=== PATIENT | male | born 1960 | race Caucasian/White ===

== ENCOUNTER 2017-08-28 10:20 | Inpatient (IN) | payer OTHER ==
[~2017-08-28] VITALS: Ht 172.7 cm; Wt 127.0 kg
[2017-08-28] MEDS ORDERED: GABAPENTIN300 MG (10:38)
[2017-08-28] MEDS ORDERED: ZOCOR5 MG (10:38)
[2017-08-28] MEDS ORDERED: COZAAR100 MG (10:38)
[2017-08-28] MEDS ORDERED: CARVEDILOL6.25 MG (10:38)
[2017-08-28] MEDS ORDERED: FUROSEMIDE40 MG (10:38)
[2017-08-28] MEDS ORDERED: RESTORIL7.5 MG (10:39)
[2017-08-28] MEDS ORDERED: METOLAZONE2.5 MG (10:39)
[2017-08-28] MEDS ORDERED: ZYLOPRIM100 MG (10:39)
[2017-08-28] MEDS ORDERED: FERRETTS325 MG (10:39)
[2017-08-28] MEDS ORDERED: PRE-PROTEIN236.5 ML (10:40)
[2017-08-28] MEDS ORDERED: HUMALOG100 UNIT/1 (10:40)
[2017-08-28] MEDS ORDERED: RENAL VITAMIN0.8 MG (10:40)
[2017-08-28] MEDS ORDERED: LANTUS SOL100 UNIT/1 (10:40)
[2017-08-28] MEDS ORDERED: XANAX2 MG (10:41)
[2017-08-28] MEDS ORDERED: OMEPRAZOLE20 MG (10:41)
[2017-08-28] MEDS ORDERED: CYMBALTA60 MG (10:41)
== END 2017-09-22 13:34 | DRG 982 ==
LOC: ER 10:20 → SURH 22:28 → SEC-K 22:28 → SURH 08-29 08:15
PROVIDERS: Specialist
PROC: B44HZZZ Ultrasonography of Bilateral Lower Extremity Arteries (ICD-10-PCS; 2017-08-28)
PROC: 8E0ZXY6 Isolation (ICD-10-PCS; 2017-08-28)
PROC: 4A033R1 Measurement of Arterial Saturation, Peripheral, Percutaneous Approach (ICD-10-PCS; 2017-08-29)
PROC: 3E0F7GC Introduction of Other Therapeutic Substance into Respiratory Tract, Via Natural or Artificial Opening (ICD-10-PCS; 2017-08-29)
PROC: 02HV33Z Insertion of Infusion Device into Superior Vena Cava, Percutaneous Approach (ICD-10-PCS; 2017-08-29)
PROC: BQ3LZZZ Magnetic Resonance Imaging (MRI) of Right Foot (ICD-10-PCS; 2017-08-30)
PROC: BB24ZZZ Computerized Tomography (CT Scan) of Bilateral Lungs (ICD-10-PCS; 2017-08-30)
PROC: 0QBQ0ZZ Excision of Right Toe Phalanx, Open Approach (ICD-10-PCS; 2017-09-08)
PROC: 0QBR0ZZ Excision of Left Toe Phalanx, Open Approach (ICD-10-PCS; principal; 2017-09-08 13:00)
PROC: 30233N1 Transfusion of Nonautologous Red Blood Cells into Peripheral Vein, Percutaneous Approach (ICD-10-PCS; 2017-09-11)
DX: E11.42 Type 2 diabetes mellitus with diabetic polyneuropathy (principal); M86.171 Other acute osteomyelitis, right ankle and foot; M86.172 Other acute osteomyelitis, left ankle and foot; L97.518 Non-pressure chronic ulcer of other part of right foot with other specified severity; L97.528 Non-pressure chronic ulcer of other part of left foot with other specified severity; I70.261 Atherosclerosis of native arteries of extremities with gangrene, right leg; N18.4 Chronic kidney disease, stage 4 (severe); E11.621 Type 2 diabetes mellitus with foot ulcer; E11.65 Type 2 diabetes mellitus with hyperglycemia; E11.628 Type 2 diabetes mellitus with other skin complications; L03.032 Cellulitis of left toe; L03.031 Cellulitis of right toe; Z79.4 Long term (current) use of insulin; E11.22 Type 2 diabetes mellitus with diabetic chronic kidney disease; I12.9 Hypertensive chronic kidney disease with stage 1 through stage 4 chronic kidney disease, or unspecified chronic kidney disease; E11.3293 Type 2 diabetes mellitus with mild nonproliferative diabetic retinopathy without macular edema, bilateral; Z68.39 Body mass index [BMI] 39.0-39.9, adult; D63.1 Anemia in chronic kidney disease; I70.245 Atherosclerosis of native arteries of left leg with ulceration of other part of foot; E66.01 Morbid (severe) obesity due to excess calories; G47.33 Obstructive sleep apnea (adult) (pediatric); F32.89 Other specified depressive episodes; B95.61 Methicillin susceptible Staphylococcus aureus infection as the cause of diseases classified elsewhere; B95.1 Streptococcus, group B, as the cause of diseases classified elsewhere; R09.02 Hypoxemia; E11.69 Type 2 diabetes mellitus with other specified complication
CPT/HCPCS: 73221

== ENCOUNTER 2017-11-03 15:00 | Inpatient (IN) | payer OTHER ==
[~2017-11-03] VITALS: Ht 170.2 cm; Wt 124.7 kg
[~2017-11-03 15:00] MED LIST: CARVEDILOL6.25 MG; COZAAR100 MG; CYMBALTA60 MG PO; FERRETTS325 MG; FUROSEMIDE40 MG; GABAPENTIN300 MG; HUMALOG100 UNIT/1; LANTUS SOL100 UNIT/1; METOLAZONE2.5 MG; OMEPRAZOLE20 MG; PRE-PROTEIN236.5 ML; RENAL VITAMIN0.8 MG; RESTORIL7.5 MG; XANAX2 MG PO; ZOCOR5 MG; ZYLOPRIM100 MG
[2018-01-15] MEDS ORDERED: CLOTRIMAZOLE15 GM TOP (13:20)
[2018-01-15] MEDS ORDERED: Intestinex CAP PO (13:20)
[2018-01-15] MEDS ORDERED: FERROUS SULFAT325 M1 PO (13:20)
[2018-01-15] MEDS ORDERED: FOLIC ACID1 MG PO (13:20)
[2018-01-15] MEDS ORDERED: GABAPENTIN800 MG PO (13:20)
[2018-01-15] MEDS ORDERED: TAMS0.4C PO (13:20)
[2018-01-15] MEDS ORDERED: LACTULOSE20 GM/30 M PO (13:20)
[2018-01-15] MEDS ORDERED: HumaLOG 100 UNIT/1 M SUBCUTANEO ×3 (13:20)
[2018-01-15] MEDS ORDERED: Coreg 6.25MG TABLET PO (13:20)
[2018-01-15] MEDS ORDERED: FAMOTIDINE20 MG PO (13:20)
[2018-01-15] MEDS ORDERED: METOLAZONE2.5 MG PO (13:20)
[2018-01-15] MEDS ORDERED: B COMPLEX1 EACH PO (13:20)
[2018-01-15] MEDS ORDERED: SIMVASTATIN10 MG PO (13:20)
[2018-01-15] MEDS ORDERED: HYDRALAZINE HCL50 MG PO (13:20)
[2018-01-15] MEDS ORDERED: RESTORIL15 MG PO (13:20)
[2018-01-15] MEDS ORDERED: AMLODIPINE BESYL5 MG PO (13:20)
[2018-01-15] MEDS ORDERED: SYNTHROID50 MCG PO (13:20)
[2018-01-15] MEDS ORDERED: FUROSEMIDE20 MG PO (13:20)
[2018-01-15] MEDS ORDERED: Lantus 1000 UNITS/10 SUBCUTANEO (13:20)
[2018-01-15] MEDS ORDERED: ZYLOPRIM100 M1 PO (13:20)
[2018-01-15] MEDS ORDERED: XANAX2 MG PO (13:22)
== END 2018-01-15 14:46 | disposition home health service (06) | DRG 988 ==
LOC: SURH 15:00
PROVIDERS: Specialist
PROC: 8E0ZXY6 Isolation (ICD-10-PCS; 2017-11-03)
PROC: 02H633Z Insertion of Infusion Device into Right Atrium, Percutaneous Approach (ICD-10-PCS; 2017-11-06)
PROC: CP1Z1ZZ Planar Nuclear Medicine Imaging of Musculoskeletal System, All using Technetium 99m (Tc-99m) (ICD-10-PCS; 2017-11-07)
PROC: BQ3LZZZ Magnetic Resonance Imaging (MRI) of Right Foot (ICD-10-PCS; 2017-11-10)
PROC: BQ3LZZZ Magnetic Resonance Imaging (MRI) of Right Foot (ICD-10-PCS; 2017-12-28)
PROC: BQ3MZZZ Magnetic Resonance Imaging (MRI) of Left Foot (ICD-10-PCS; 2017-12-28)
PROC: 0QBQ0ZX Excision of Right Toe Phalanx, Open Approach, Diagnostic (ICD-10-PCS; 2018-01-04)
PROC: 0QBR0ZX Excision of Left Toe Phalanx, Open Approach, Diagnostic (ICD-10-PCS; principal; 2018-01-04 08:45)
PROC: 05H533Z Insertion of Infusion Device into Right Subclavian Vein, Percutaneous Approach (ICD-10-PCS; 2018-01-11)
DX: E11.42 Type 2 diabetes mellitus with diabetic polyneuropathy (principal); E11.52 Type 2 diabetes mellitus with diabetic peripheral angiopathy with gangrene; M86.171 Other acute osteomyelitis, right ankle and foot; L97.518 Non-pressure chronic ulcer of other part of right foot with other specified severity; L97.528 Non-pressure chronic ulcer of other part of left foot with other specified severity; N18.4 Chronic kidney disease, stage 4 (severe); I70.261 Atherosclerosis of native arteries of extremities with gangrene, right leg; N17.8 Other acute kidney failure; M86.172 Other acute osteomyelitis, left ankle and foot; E11.69 Type 2 diabetes mellitus with other specified complication; E11.22 Type 2 diabetes mellitus with diabetic chronic kidney disease; I12.9 Hypertensive chronic kidney disease with stage 1 through stage 4 chronic kidney disease, or unspecified chronic kidney disease; E11.21 Type 2 diabetes mellitus with diabetic nephropathy; I25.10 Atherosclerotic heart disease of native coronary artery without angina pectoris; D63.1 Anemia in chronic kidney disease; F32.89 Other specified depressive episodes; E11.3293 Type 2 diabetes mellitus with mild nonproliferative diabetic retinopathy without macular edema, bilateral; H54.8 Legal blindness, as defined in USA; E11.621 Type 2 diabetes mellitus with foot ulcer; E66.8 Other obesity; Z68.39 Body mass index [BMI] 39.0-39.9, adult; G47.33 Obstructive sleep apnea (adult) (pediatric); L03.032 Cellulitis of left toe; L03.031 Cellulitis of right toe; I70.245 Atherosclerosis of native arteries of left leg with ulceration of other part of foot; B37.2 Candidiasis of skin and nail; R09.02 Hypoxemia; E11.65 Type 2 diabetes mellitus with hyperglycemia; E87.5 Hyperkalemia
CPT/HCPCS: 73221

== ENCOUNTER 2021-12-02 12:55 | Outpatient (CLI) | payer OTHER ==
[~2021-12-02 12:55] MED LIST changes: +AMLODIPINE BESYL5 MG PO; +B COMPLEX1 EACH PO; +CLOTRIMAZOLE15 GM TOP; +Coreg 6.25MG TABLET PO; +FAMOTIDINE20 MG PO; +FERROUS SULFAT325 M1 PO; +FOLIC ACID1 MG PO; +FUROSEMIDE20 MG PO; +GABAPENTIN800 MG PO; +HYDRALAZINE HCL50 MG PO; +HumaLOG 100 UNIT/1 M SUBCUTANEO; +Intestinex CAP PO; +LACTULOSE20 GM/30 M PO; +Lantus 1000 UNITS/10 SUBCUTANEO; +METOLAZONE2.5 MG PO; +RESTORIL15 MG PO; +SIMVASTATIN10 MG PO; +SYNTHROID50 MCG PO; +TAMS0.4C PO; +ZYLOPRIM100 M1 PO
== END 2021-12-02 13:05 | disposition home or self-care (01) ==
LOC: SONOGRAMA 12:55
PROVIDERS: ATTEND Internal Medicine Cardiovascular Disease
DX: E03.9 Hypothyroidism, unspecified (principal)

== ENCOUNTER 2023-06-12 11:21 | Outpatient (CLI) | payer OTHER | END 2023-06-12 11:27 | disposition home or self-care (01) | LOC: SONOGRAMA 11:21 | PROVIDERS: ATTEND Internal Medicine Cardiovascular Disease | DX: R10.9 Unspecified abdominal pain (principal) ==